=== PATIENT | male | born 1990 | race Caucasian/White ===

== ENCOUNTER 2016-11-19 19:19 | Emergency (ER) | payer BC ==
[2016-11-19 20:30] VITALS: BP 140/80
--- NOTE | 2016-11-19 21:16 | UC ---
Respiratory Complaint HPI - HPI Summary HPI Summary: 26 yo male with a one week hx of sinus pressure and pain post nasal drip upper teeth and gum sensitive today mild numbness below right eye recently noted to have high BP being followed by his MD trying lifestyle modification - History of Current Complaint Chief Complaint: UCGeneralIllness Stated Complaint: PRESSURE LEFT SIDE OF FACE Time Seen by Provider: 11/19/16 21:15 Hx Obtained From: Patient Onset/Duration: Gradual Onset, Lasting Weeks - 1 Timing: Constant Severity Initially: Mild Severity Currently: Mild Pain Intensity: 3 Pain Scale Used: 0-10 Numeric Aggravating Factors: Nothing Alleviating Factors: Nothing Associated Signs And Symptoms: Positive: Nasal Congestion, Sinus Discomfort - Allergies/Home Medications Allergies/Adverse Reactions: Allergies Allergy/AdvReac Type Severity Reaction Status Date / Time Amoxicillin [From Augmentin] Allergy Nausea Verified 11/19/16 20:30 Clavulanic Acid Allergy Nausea Verified 11/19/16 20:30 [From Augmentin] PMH/Surg Hx/FS Hx/Imm Hx Previously Healthy: Yes Cardiovascular History Of: Reports: Hypertension - Surgical History Surgical History: None - Family History Known Family History: Positive: Hypertension - Social History Alcohol Use: Daily Substance Use Type: None Smoking Status (MU): Never Smoked Tobacco Review of Systems Constitutional: Negative Skin: Negative Eyes: Negative ENT: Dental Pain Respiratory: Negative Cardiovascular: Negative Gastrointestinal: Negative Genitourinary: Negative Motor: Negative Neurovascular: Negative Musculoskeletal: Negative Neurological: Headache - facial pressure Psychological: Negative All Other Systems Reviewed And Are Negative: Yes Physical Exam Triage Information Reviewed: Yes Appearance: Well-Appearing, No Pain Distress, Well-Nourished Vital Signs: Initial Vital Signs Temp 98.4 F 11/19/16 20:25 Pulse 88 11/19/16 20:25 Resp 17 11/19/16 20:25 BP 140/80 11/19/16 20:25 Pulse Ox 100 11/19/16 20:25 Eyes: Positive: Conjunctiva Clear, Other: - perrl/eomi, fundi benign ENT: Positive: Hearing grossly normal, Nasal congestion, TMs normal. Negative: Nasal drainage, TM bulging, TM dull, TM red, Tonsillar swelling, Tonsillar exudate, Trismus, Muffled/hoarse voice Dental: Negative: Gross Decay/Caries @, Dental Fracture @, Abscess @ Neck: Positive: Supple, Nontender, No Lymphadenopathy Respiratory: Positive: Lungs clear, Normal breath sounds, No respiratory distress, No accessory muscle use Cardiovascular: Positive: RRR, No Murmur, Pulses Normal Abdomen Description: Positive: Nontender, No Organomegaly Musculoskeletal: Positive: ROM Intact, No Edema Neurological: Positive: Alert, Muscle Tone Normal, Other: - cranial nerve 2-12 intact. Negative: Fatigued Skin Exam: Normal Skin: Negative: rashes UC Diagnostic Evaluation - Laboratory O2 Sat by Pulse Oximetry: 100 - normal/not hypoxic Respiratory Course/Dx - Differential Dx/Diagnosis Provider Diagnoses: acute sinusitis Discharge - Discharge Plan Condition: Stable Disposition: HOME Prescriptions: Cefuroxime Axetil [Ceftin 250 MG] 250 mg PO BID #18 tab Patient Education Materials: Sinusitis (ED) Referrals: Joy Isaac MD [Primary Care Provider] - 4 Days (idf not better your bp here was 140/80 and should be followed up) Additional Instructions: recheck for new or worsening symptoms
[2016-11-19] MEDS ORDERED: ceFUROXime TAB(*) 250 MG PO ONE ×2 (21:34)
== END 2016-11-19 21:48 | disposition home or self-care (01) ==
LOC: UCCORT 19:19
DX: J01.90 Acute sinusitis, unspecified (principal); I10 Essential (primary) hypertension; Z88.1 Allergy status to other antibiotic agents
CPT/HCPCS: 99202; G0463

== ENCOUNTER 2018-10-23 12:00 | Emergency (ER) | payer BC ==
[2018-10-23 14:23] VITALS: BP 129/77
--- NOTE | 2018-10-23 14:38 | UC ---
FLU HPI - HPI Summary HPI Summary: patient woke up this morning with body aches and general malaise - History of Current Complaint Chief Complaint: UCRespiratory Stated Complaint: CHILLS/SWEATS Time Seen by Provider: 10/23/18 14:31 Hx Obtained From: Patient Onset/Duration: Sudden Onset, Lasting Hours Severity Currently: Moderate Severity Initially: Moderate Pain Intensity: 5 Associated Signs & Symptoms: Positive: Myalgia, Headache - Allergy/Home Medications Allergies/Adverse Reactions: Allergies Allergy/AdvReac Type Severity Reaction Status Date / Time amoxicillin [From Augmentin] Allergy Nausea Verified 10/23/18 14:23 clavulanic acid Allergy Nausea Verified 10/23/18 14:23 [From Augmentin] Home Medications: Home Medications NK [No Home Medications Reported] 10/23/18 [History Confirmed 10/23/18] PMH/Surg Hx/FS Hx/Imm Hx Previously Healthy: Yes - Surgical History Surgical History: Yes Surgery Procedure, Year, and Place: wisdom teeth extraction - Family History Known Family History: Positive: Hypertension - Social History Alcohol Use: Daily Substance Use Type: None Smoking Status (MU): Never Smoked Tobacco Review of Systems All Other Systems Reviewed And Are Negative: Yes Constitutional: Positive: Fatigue Skin: Positive: Negative Eyes: Positive: Negative ENT: Positive: Negative Respiratory: Positive: Negative Cardiovascular: Positive: Negative Gastrointestinal: Positive: Negative Genitourinary: Positive: Negative Motor: Positive: Negative Neurovascular: Positive: Negative Musculoskeletal: Positive: Myalgia Neurological: Positive: Headache Psychological: Positive: Negative Is Patient Immunocompromised?: No Physical Exam Triage Information Reviewed: Yes Appearance: Well-Nourished, Ill-Appearing, Pain Distress Vital Signs: Initial Vital Signs Temp 98.4 F 10/23/18 14:21 Pulse 118 10/23/18 14:21 Resp 18 10/23/18 14:21 BP 129/77 10/23/18 14:21 Pulse Ox 97 10/23/18 14:21 Vital Signs Reviewed: Yes Eye Exam: Normal ENT: Positive: Pharyngeal erythema Dental Exam: Normal Neck exam: Normal Respiratory Exam: Normal Respiratory: Positive: Chest non-tender, Lungs clear, Normal breath sounds Cardiovascular Exam: Normal Cardiovascular: Positive: RRR, No Murmur, Pulses Normal Abdominal Exam: Normal Abdomen Description: Positive: Nontender, No Organomegaly, Soft Bowel Sounds: Positive: Present Musculoskeletal Exam: Normal Neurological Exam: Normal Psychological Exam: Normal Skin Exam: Normal Flu Course/Dx - Course Course Of Treatment: hx obtained, exam performed ,meds reviewed, rapid flu obtained. and is negaitve - Differential Dx/Diagnosis Differential Diagnosis/HQI/PQRI: Bronchitis, Influenza, Other - vitral syndrome Provider Diagnosis: Myalgia Discharge - Sign-Out/Discharge Documenting (check all that apply): Patient Departure All imaging exams completed and their final reports reviewed: No Studies - Discharge Plan Condition: Stable Disposition: HOME Patient Education Materials: Musculoskeletal Pain (ED) Referrals: Carmen Meléndez PA [Primary Care Provider] - Additional Instructions: 1. go home and get plenty of rest. 2. Ibuprofen 400 -600 mg every 4-6 hours 3. Increae fluid intake and follow up as needed. - Billing Disposition and Condition Condition: STABLE Disposition: Home - Attestation Statements Provider Attestation: I was available for consult. This patient was seen by the MACIE. The patient was not presented to , seen by or examined by wy -Yovany Stoll MD
[2018-10-23 14:52] LABS: Influenza A Molecular NEGATIVE (Negative); Influenza B Molecular NEGATIVE (Negative)
== END 2018-10-23 15:17 | disposition home or self-care (01) ==
LOC: UCCORT 12:00
DX: M79.10 Myalgia, unspecified site (principal); R53.81 Other malaise; R51 Headache; Z88.0 Allergy status to penicillin
CPT/HCPCS: 99211; G0463